=== PATIENT | female | born 1945 | race Caucasian/White ===

== ENCOUNTER 2016-06-04 14:53 | Emergency (ER) | payer OTHER, MEDICARE ==
[~2016-06-04] VITALS: Ht 157.5 cm; Wt 73.6 kg
[~2016-06-04 14:53] MED LIST: AMT50T PO; ASPI-973 PO; CALC-714 PO; CHOL10008 PO; FEROCON PO; GLPZ5T PO; GLUC100016 PO; LEVO100T6 PO; LOSA50TA37 PO; METF500T4 PO; MULT-666 PO; OMEP20CA11 PO; OXYB5TAB PO; OXYC1TAB24 PO; PHEN-684 PO; POLY17PO6 PO; PRAM0.755 PO; PRAV40TA PO; TRAM50TA2 PO
[2016-06-04 15:04] VITALS: BP 135/68; PULSE 81; RESP 16; O2SAT 99
--- NOTE | 2016-06-04 15:56 | ED.REPORT ---
HPI-Neck Pain Free Text HPI Notes Jun 04, 2016 ED Provider: Amada Fernandez History of Present Illness: right side headache and neck pain, ongoing for a a while, heat helped. hx of headaches including migrianes but not for years, ibuprofen and muscle relaxer helps. primary care is dr [facility] 11/09 when bad goes to 03/11. 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 Lots of stress, has health issues in the last 2 to 3 weeks. 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 money an issue now Nursing Notes Stated Complaint: NECK PAIN,HEADACHE Chief Complaint: Head, Face, Neck Trauma Nursing Notes Reviewed: Yes Allergies: Coded Allergies: pseudoephedrine (Verified Allergy, Unknown, UNKNOWN, 12/13/15) triprolidine (Verified Allergy, Unknown, UNKNOWN, 12/13/15) Scheduled ([Ferocon]) 1 TAB PO BID Amitriptyline (Amitriptyline) 50 Mg Tab 50 MG PO HS Aspirin (Aspirin) 81 Mg Tablet 81 MG PO DAILY Calcium Carb/Magnesium Cmb #10 (Alvin-Mag Tablet Chewable) 1 Each Tab.chew 2 EACH PO DAILY Cholecalciferol (Vitamin D3) (Vitamin D3) 1,000 Unit Tab.chew 1,000 UNIT PO DAILY Glipizide (Glipizide) 5 Mg Tablet 5 MG PO DAILY Glucosamine Sulfate 2Kcl (Glucosamine) 1,000 Mg Tablet 1,500 MG PO DAILY Levothyroxine (Levothyroxine) 100 Mcg Tablet 100 MCG PO DAILY Losartan Potassium (Losartan Potassium) 50 Mg Tablet 50 MG PO DAILY Metformin (Metformin) 500 Mg Tablet 1,000 MG PO BID Multivitamin (Once Daily) 1 Each Tablet 1 EACH PO DAILY Omeprazole (Omeprazole) 20 Mg Capsule.dr 20 MG PO BID Oxybutynin Chloride ER (Oxybutynin Chloride ER) 5 Mg Tab.er.24 5 MG PO DAILY Polyethylene Glycol 3350 (Miralax) 17 Gm Powd.pack 17 GM PO DAILY Pramipexole ER (Mirapex ER) 0.75 Mg Tablet 0.5 MG PO DAILY Pravastatin (Pravastatin) 40 Mg Tablet 40 MG PO DAILY Scheduled PRN Phenazopyridine (Pyridium) 200 Mg Tablet 200 MG PO TID PRN PRN For Pain Tramadol (Tramadol) 50 Mg Tablet 50 MG PO Q8 PRN PRN For Pain oxyCODONE-Acetaminophen 5-325 mg (oxyCODONE-Acetaminophen 5-325 mg) 1 Each Tablet 1 TAB PO Q4H PRN PRN For Pain General Time Seen by Provider: 16:09 Chief Complaint Other (headache) Hx Obtained From: Patient Sudden in Onset?: No Past Medical History Past Medical History Reports: Diabetes mellitus, Denies: Asthma Past Surgical History Reports: Cholecystectomy Smoking History Never Smoker Social History Alcohol Use: "Social" Drug Use: Denies drug use Other Social History: Occupation lives with spouse works at [employer]06/04/2016 Review of Systems Basic Review of Systems : No dysuria Hematologic: No bleeding, No bruising Endocrine: No cold intolerance, No heat intolerance, No weight gain, No weight loss Allergy / Immune: No allergy Psychiatric: Normal thought content Physical Exam Initial Vital Signs Vital Signs (First) Date Time Temp Pulse Resp B/P Pulse Ox O2 Delivery O2 Flow Rate FiO2 06/04/16 15:04 36.1 81 16 135/68 99 Room Air Initial VS: Reviewed, Vital signs normal Head / Eyes: Atraumatic, Normocephalic, PERRL ENT: Mucous membranes moist, Conjunctiva normal, No scleral icterus Respiratory: Breath sounds normal, Clear to auscultation, No respiratory distress Cardiovascular: Regular rate & rhythm, Heart sounds normal, Intact distal pulses Abdomen / GI: Soft, Non-tender, No guarding, No rebound, No distention Back: No CVA tenderness Lymphatic: No lymphadenopathy Extremities: Vascular intact, Neuro intact, No swelling, No tenderness Skin: Warm, Dry, No cyanosis Psychiatric: Mood/affect normal, Behavior normal, Normal thought content General/Constitutional: Awake, Alert, No acute distress, Well appearing, Well developed, Well hydrated, Well nourished, Cooperative, Not toxic appearing patient points to spot on posterior head, no erthyma, no sign of infection, pain then radiates down right side of neck and into upper shoulder Has full range of motrion of neck Neurologic: Oriented X3, Speech NL, No motor deficits, No sensory deficits ENT: Atraumatic, Airway patent, Mucous membranes moist, Pharynx NL Respiratory / Chest: Atraumatic, Breath sounds NL, Breath sounds = bilat, No respiratory distress, No rales, No rhonchi, No wheezing, No retractions Cardiovascular: Heart rate NL, Regular rhythm, Heart sounds NL, No gallop Back: Atraumatic, Inspection NL, Full range of motion Interpretation & Diagnostics Interpretation & Diagnostics: FINDINGS: Image quality: Excellent. CSF spaces: Basal cisterns are patent. No extra-axial fluid collections. Ventricles are normal in size and shape. Brain: No midline shift. No intracranial masses or hemorrhage. Odom-white matter interface is normal. Skull and face: Calvarium and visualized facial bones are intact, without suspicious lesions. Sinuses: Visualized sinuses and mastoids are clear. IMPRESSION: No acute intracranial abnormality. Re-Eval/Medical Decision Med Decision/Clinical Course discussed with patient the timing of the headaches, usually in the evening, the point tenderness, the response to motrin and flexeril, this appears to be an atypical migraine Discharge & Departure Primary Impression: Migraine Migraine type: periodic headache syndrome Disposition: Home Patient Instructions: Botulism (GEN), Botulism Immune Globulin (Injection), Migraine Headache (ED) Additional Instructions: The brain CT looks good. No sign of any abnormality. With the recent amount of stress, the headache may be a reaction to that. Continue with what you know has been helpful. Ibuprofen, and flexeril and heat. Please make an appointment with neurology to discuss possible use of botox if your headache still continue with it usually pattern. Referrals: Jason Bellamy DO (PCP) Raquel Ricks MD EDSupervising Provider for [facility]: Blair De La Torre DO copies to: Raquel Ricks MD; Jason Bellamy Sue ARNP Jun 04, 2016 15:56
[2016-06-04] MEDS ORDERED: LORazepam 0.5 mg Tablet PO ONE (16:15)
[2016-06-04] MEDS ORDERED: Dexamethasone 20 mg/2 mL Oral Solution PO ONE (16:15)
--- NOTE | 2016-06-04 16:58 | DRSVH ---
PROCEDURE: CT BRAIN WITHOUT CONTRAST ([id number]) INDICATIONS: head pain TECHNIQUE: Noncontrast 4.5 mm thick angled axial sections acquired from the foramen magnum to the vertex, with c oronal reformats. COMPARISON: None. FINDINGS: Image quality: Excellent. CSF spaces: Basal cisterns are patent. No extra-axial fluid collections. Ventricles are normal in size and shape. Brain: No midline shift. No intracranial masses or hemorrhage. Odom-white matter interface is norm al. Skull and face: Calvarium and visualized facial bones are intact, without suspicious lesions. Sinuses: Visualized sinuses and mastoids are clear. IMPRESSION: No acute intracranial abnormality. Dictated by: Franca Mercado M.D. on 06/04/2016 at 16:55 Approved by: Franca Mercado M.D. on 06/04/2016 at 16:55
== END 2016-06-04 18:37 | disposition home or self-care (01) ==
LOC: SED 14:53
DX: G43.909 Migraine, unspecified, not intractable, without status migrainosus (principal); E11.9 Type 2 diabetes mellitus without complications; Z79.82 Long term (current) use of aspirin; Z79.84 Long term (current) use of oral hypoglycemic drugs; Z88.8 Allergy status to other drugs, medicaments and biological substances